=== PATIENT | female | born 1990 | race Caucasian/White ===

== ENCOUNTER 2017-01-07 14:24 | Emergency (ER) | payer OTHER ==
[~2017-01-07] VITALS: Ht 167.6 cm; Wt 120.0 kg
[~2017-01-07 14:24] MED LIST: IBUP600T26 PO; TRAM50 PO
[2017-01-07 14:27] VITALS: BP 136/78; PULSE 84; RESP 15; TEMP 98.2; O2SAT 98
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
[2017-01-07] MEDS ORDERED: TRAM50TA PO (16:24)
== END 2017-01-07 16:59 | disposition home or self-care (01) ==
LOC: NEPK 14:24
DX: S62.307A Unspecified fracture of fifth metacarpal bone, left hand, initial encounter for closed fracture (principal); V43.52XA Car driver injured in collision with other type car in traffic accident, initial encounter; Y93.89 Activity, other specified; Y92.410 Unspecified street and highway as the place of occurrence of the external cause
CPT/HCPCS: 29125; 73130